=== PATIENT | male | born 1980 | race Caucasian/White ===

== ENCOUNTER 2016-09-16 18:58 | Emergency (ER) | payer SELFPAY ==
[~2016-09-16 18:58] MED LIST: ACETAMINOPHEN325 M2 PO; ALPRAZOLAM0.5 M3 PO; CARVEDILOL12.5 MG PO; CATAPRES0.2 MG PO; COREG12.5 M1 PO; EDARBYCLOR 40-1 EAC3 PO; HYDROCHLOROTHIA25 M1 PO; HYDROCHLOROTHIA25 MG PO; KLOR-CON20 MEQ PO; METOPROLOL TART25 M1 PO; METOPROLOL TART50 M2 PO; NORVASC10 M2 PO; NORVASC5 M2 PO; POTASSIUM99 M4 PO; PRINIVIL20 M1 PO; TOPROL XL50 M1 PO; ZEGERID 20 MG C1 CAP PO; ZESTRIL10 M3 PO; ZESTRIL20 M3 PO
[2016-09-16] MEDS ORDERED: NORCO 5-325 TA1 EACH PO (19:52)
[2016-09-16] MEDS ORDERED: CLINDAMYCIN HC150 M1 PO (19:52)
[2017-01-15] MEDS ORDERED: ALDACTONE25 M1 PO (12:37)
[2017-01-15] MEDS ORDERED: CHLORTHALIDONE25 M1 PO (12:38)
== END 2016-09-16 20:00 ==
LOC: EDMED 18:58
DX: K08.89 Other specified disorders of teeth and supporting structures (principal); I10 Essential (primary) hypertension; Z88.0 Allergy status to penicillin